=== PATIENT | female | born 1960 | race Caucasian/White ===

== ENCOUNTER 2023-02-26 04:27 | Emergency (ER) | payer OTHER ==
[~2023-02-26] VITALS: Ht 172.7 cm; Wt 70.5 kg
[2023-02-26 05:02] LABS: HEMATOCRIT 45.8 % (36.0-47.0); HEMOGLOBIN 15.4 g/dl (12.0-15.5); MEAN CORPUSCULAR HEMOGLOBIN 32.7 pg (27.0-33.0); MEAN CORPUSCULAR HGB CONC 33.6 g/dl (32.0-36.5); MEAN CORPUSCULAR VOLUME 97.2 fl (80.0-96.0); PLATELET COUNT, AUTOMATED 259 10^3/uL (150-450); RED BLOOD COUNT 4.71 10^6/uL (4.00-5.40); WHITE BLOOD COUNT 7.4 10^3/uL (4.0-10.0)
[2023-02-26 05:25] LABS: ETHYL ALCOHOL (ETHANOL) 0.176 % (0.000-0.010)
[2023-02-26 05:27] LABS: ACETAMINOPHEN LEVEL < 2.0 UG/ML (10.0-20.0); ALBUMIN 4.3 G/DL (3.2-5.2); ALKALINE PHOSPHATASE 85 U/L (46-116); ALT/SGPT 20 U/L (7.0-40); AST/SGOT 14 U/L (<34); BILIRUBIN,DIRECT 0.1 MG/DL (<0.4); BILIRUBIN,TOTAL 0.4 MG/DL (0.3-1.2); BLOOD UREA NITROGEN 9 MG/DL (9-23); CALCIUM LEVEL 9.2 MG/DL (8.3-10.6); CARBON DIOXIDE LEVEL 26 MMOL/L (20-31); CHLORIDE LEVEL 110 MMOL/L (98-107); CREATININE FOR GFR 0.65 MG/DL (0.55-1.30); GLOMERULAR FILTRATION RATE > 60.0 (>45); GLUCOSE, FASTING 102 MG/DL (74-106); POTASSIUM SERUM 4.4 MMOL/L (3.5-5.1); SALICYLATE LEVEL < 3.0 MG/DL (<30); SODIUM LEVEL 145 MMOL/L (136-145); TOTAL PROTEIN 7.5 G/DL (5.7-8.2)
[2023-02-26 05:29] LABS: THYROID STIMULATING HORMONE 0.175 uIU/ML (0.55-4.78)
[2023-02-26 05:37] LABS: AMPHETAMINES LEVEL URINE NEGATIVE (NEGATIVE); BARBITURATES URINE NEGATIVE (NEGATIVE); BENZODIAZEPINES URINE NEGATIVE (NEGATIVE); COCAINE METABOLITE URINE NEGATIVE (NEGATIVE); METHADONE URINE NEGATIVE (NEGATIVE); OPIATES URINE NEGATIVE (NEGATIVE); PHENCYCLIDINE URINE NEGATIVE (NEGATIVE)
[2023-02-26 05:38] LABS: CANNABINOIDS URINE NEGATIVE (NEGATIVE)
[2023-02-26] MEDS ORDERED: HOME MED LIST COMPLETE! XX SCH (06:25)
[2023-02-26 08:43] LABS: FREE T4 1.28 NG/DL (0.89-1.76)
[2023-02-26 12:14] VITALS: BP 139/90; TEMP 97; O2SAT 98
[2023-02-26] MEDS ORDERED: ACETAMINOPHEN TAB 650MG DOSE (2X325MG) PO ONE (12:15)
== END 2023-02-26 12:25 | disposition home or self-care (01) ==
LOC: M ED 04:27
DX: F43.9 Reaction to severe stress, unspecified (principal); F10.129 Alcohol abuse with intoxication, unspecified